=== PATIENT | female | born 1995 | race Caucasian/White ===

== ENCOUNTER 2024-02-28 15:33 | Emergency (ER) | payer OTHER, SELFPAY ==
[2024-02-28 15:36] VITALS: BP 138/82
--- NOTE | 2024-02-28 23:47 | ED.GENMED ---
History of Present Illness
<Shawna Pablo NP - Last Filed: 03/03/24 15:41>
General
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
Source: patient
Exam Limitations: none
Time Seen by Provider: 02/28/24 17:27
Nursing documentation reviewed up to this point in time: agreed with
Travel History
Have you had any contact with someone who has COVID-19?: No
Do you have any symptoms of coronavirus? Fever > 100 degrees, chills, cough, shortness of breath, sore throat, loss of taste or smell, muscle aches, or headache?: No
History of Present Illness
History of Present Illness:
Patient to ED with complaint of painful rash to genitalia. States she had oral sex with partner this past week and then developed rash. No prior history of same. Brought self to ED for eval.
Past History
<Shawna Pablo NP - Last Filed: 03/03/24 15:41>
Past History
ED Past Medical History: None
ED Past Surgical History: None
Social History
Tobacco: Non-smoker
Review of Systems
<Shawna Pablo NP - Last Filed: 03/03/24 15:41>
Review of Systems
Allergies reviewed?: Yes
All Other Systems: ROS reviewed and negative except as documented in HPI and ROS
Constitutional: Reports no symptoms
EENT: Reports no symptoms
Respiratory: Reports no symptoms
Cardiac: Reports no symptoms
ABD/GI: Reports no symptoms
: Reports other (painful vesicular rash to genitalia)
Musculoskeletal: Reports no symptoms
Skin: Reports no symptoms
Neurological: Reports no symptoms
Psychiatric: Reports no symptoms
Phy Exam
<Shawna Pablo NP - Last Filed: 03/03/24 15:41>
General Physical Exam
General Presentation: well appearing and no apparent distress
General age: appears stated age
General Skin: warm and dry
General Habitus: normal
General Mental: alert
Gastrointestinal Exam
Gastrointestinal Exam: non tender and soft
Genitourinary Exam Female
Exam Female: no adnexal tenderness, no bleeding, no CMT, no mass and other (vesicular rash noted to labia, clitoris)
Vaginal Exam: normal
Vaginal Bleeding: none
Vaginal Discharge: creamy
Visual exam of cervix: os closed
Musculoskeletal Exam
Musculoskeletal Exam: full ROM and neuro vasc intact
Skin Exam
Skin Exam: normal color, warm/dry and no rash
Psychiatric Exam
Psychiatric Exam: normal mood/affect
Course
<Shawna Pablo SUPPLY SPECIALIST - Last Filed: 03/03/24 15:41>
Orders/Labs/Results
Orders:
Orders
02/28/24 18:15
Herpes Simplex Vir Subtype PCR [S] Urgent
Herpes Source: Vesicular Fluid
Other Source: Genital - vaginal
02/28/24 18:16
Chlamydia/GC by PCR Urgent
[facility] Source: Urine
Specimen Description:
Source:: URINE
Date Specimen was Collected: 02/28/24
Time Specimen was Collected: 18:08
Genital Culture Urgent
[facility] LOU Source: Endo-Cervical
Specimen Description:
Date Specimen was Collected: 02/28/24
Time Specimen was Collected: 18:08
Trichomonas - Wet Prep Urgent
[facility] LOU Source: Vagina
Specimen Description:
Date Specimen was Collected: 02/28/24
Time Specimen was Collected: 18:08
Abnormal Lab Results
02/28/24
18:15
HSV I (PCR) Detected A
Vital Signs
Initial and Last Documented VS:
Initial Vital Signs
Temp Pulse Resp BP Pulse Ox
99.1 F 79 17 138/82 100
02/28/24 15:36 02/28/24 15:36 02/28/24 15:36 02/28/24 15:36 02/28/24 15:36
Last Documented Vital Signs
Temp Pulse Resp BP Pulse Ox
99.1 F 79 17 138/82 100
02/28/24 15:36 02/28/24 15:36 02/28/24 15:36 02/28/24 15:36 02/28/24 15:36
<Kasi Celeste PA-C - Last Filed: 03/04/24 15:08>
Orders/Labs/Results
Orders:
Orders
02/28/24 18:15
Herpes Simplex Vir Subtype PCR [S] Urgent
Herpes Source: Vesicular Fluid
Other Source: Genital - vaginal
02/28/24 18:16
Chlamydia/GC by PCR Urgent
[facility] LOU Source: Urine
Specimen Description:
Source:: URINE
Date Specimen was Collected: 02/28/24
Time Specimen was Collected: 18:08
Genital Culture Urgent
[facility] LOU Source: Endo-Cervical
Specimen Description:
Date Specimen was Collected: 02/28/24
Time Specimen was Collected: 18:08
Trichomonas - Wet Prep Urgent
[facility] LOU Source: Vagina
Specimen Description:
Date Specimen was Collected: 02/28/24
Time Specimen was Collected: 18:08
Abnormal Lab Results
02/28/24
18:15
HSV I (PCR) Detected A
Vital Signs
Initial and Last Documented VS:
Initial Vital Signs
Temp Pulse Resp BP Pulse Ox
99.1 F 79 17 138/82 100
02/28/24 15:36 02/28/24 15:36 02/28/24 15:36 02/28/24 15:36 02/28/24 15:36
Last Documented Vital Signs
Temp Pulse Resp BP Pulse Ox
99.1 F 79 17 138/82 100
02/28/24 15:36 02/28/24 15:36 02/28/24 15:36 02/28/24 15:36 02/28/24 15:36
<Shawna Pablo NP - Last Filed: 03/03/24 15:41>
*Critical Care Note
Total Time (30-74mins, 75-104mins- exclusive of procedures): Not Applicable
<Shawna Pablo NP - Last Filed: 03/03/24 15:41>
Update Note
Update Note:
Patient to ED with complaint ofpainful vesicular rash to genitalia after receiveing oral sex. States she has been with partner for 1 mos. She is unaware of any prior herpes diagnosis for him.She denies any evidence of genital or oral lesions on
him. I suspect HSV. CUlture obtained and sent, results pending. SHe is taking acycl[facility] that [facility]. Instructed on 40omg tid dosing. She will follow up outpatient with [facility]
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 Will start on valacyclovir. Counseled regarding contagious risk to others through oral or genital contact.
<Kasi Celeste PA-C - Last Filed: 03/04/24 15:08>
Update Note
Update Note:
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 Will start on valacyclovir. Counseled regarding contagious risk to others through oral or genital contact.
ED Attending Note
<Shawna Pablo NP - Last Filed: 03/03/24 15:41>
-
Portions of this chart may have been created with voice recognition software.� Occasional wrong word or��sound alike� substitutions may have occurred due to the inherent limitations of voice recognition software.
Discharge Plan
Departure
Patient Disposition: Home (Routine Discharge)
Date of Disposition: 02/28/24
Time of Disposition: 18:16
Patient with high blood pressure during this ER visit?: No
Condition: Good
Covid-19: Not Applicable
Discharge Problem:
Rash of genitalia
Instructions: Screening for sexually transmitted infections, Tests for Herpes
Prescriptions:
New
valacyclovir [Valtrex] 1 gram tablet
1,000 mg PO BID 7 Days Qty: 14 0RF
Referrals:
Syed Lamas DO [Family Provider] -
Activity Restrictions/Additional Instructions:
Your culture results will be available in approx 2 days. We will call you with any positive results. 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
Interventions
Interventions:
*Risk Screen - Suicide Last Done: 02/28/24 15:36
*General Assessment Last Done: 02/28/24 15:36
*Neglect/Abuse Screening Last Done: 02/28/24 15:36
ED- Fall Risk Assessment Last Done: 02/28/24 18:25
*ED COVID-19 Vaccine History Last Done: 02/28/24 15:36
*Nursing Disposition Last Done: 02/28/24 18:26
ED-Female Genitourinary Assessment Last Done: 02/28/24 18:24
Discharge Date and Time
Discharge Date/Time: 02/28/24 18:22
Print Language: POLISH
[2024-03-02 10:10] LABS: HSV 1 Subtype by PCR Detected; HSV 2 Subtype by PCR Not Detected; Herpes Simplex Source Vesicle
== END 2024-02-28 18:22 | disposition home or self-care (01) ==
LOC: EMR 15:33
PROVIDERS: Nurse Practitioner; EMERGENCY PHYSICIAN Emergency Medicine; FAMILY PHYSICIAN Family Medicine
DX: N76.89 Other specified inflammation of vagina and vulva (principal); B00.1 Herpesviral vesicular dermatitis
CPT/HCPCS: 99283; 87070; 87210; 87491; 87529; 87591